=== PATIENT | male | born 1935 | race Caucasian/White ===

== ENCOUNTER 2016-04-30 07:08 | Inpatient (IN) | payer MEDICARE ==
[2016-04-18 13:58] LABS: WBC (NOT ORDERED) (RFLEX) 0 (0-5)
[2016-04-18 15:22] LABS: BASOPHILS 0.3 %; BASOPHILS ABSOLUTE 0.02 10/3/uL (0.0-0.16); EOSINOPHILS 1.9 %; EOSINOPHILS ABSOLUTE 0.13 10/3/uL (0.0-0.53); HEMATOCRIT 44.2 % (40.0-51.0); HEMOGLOBIN 15.1 g/dL (13.6-17.8); IMMATURE GRANULOCYTES 0.3 %; IMMATURE GRANULOCYTES ABSOLUTE 0.02 10/3/uL (0.0-0.11); LYMPHOCYTES 24.7 %; MEAN CORPUS HGB CONC 34.2 g/dL (32.0-36.0); MEAN CORPUSCULAR HEMOGLOB 31.7 pg (26.0-34.0); MEAN CORPUSCULAR VOLUME 92.7 fL (80-100); MEAN PLATELET VOLUME 9.4 fL (9.2-13.0); MONOCYTES 10.2 %; NEUTROPHILS 62.6 %; NEUTROPHILS ABSOLUTE 4.31 10/3/uL (2.02-8.40); PLATELET COUNT 228 10/3/uL (150-400); RBC DISTRIBUTION WIDTH 13.9 % (12.0-16.0); RED CELL COUNT 4.77 10/6/uL (4.7-6.1); WHITE BLOOD CELLS 6.9 10/3/uL (4.5-10.5)
[2016-04-18 15:25] LABS: MANUAL DIFF NO %
[2016-04-18 15:35] LABS: INTERNATIONAL NORMAL RATI 2.1 UNITS (-)
[2016-04-18 15:36] LABS: PROTIME (NOT ORD) 23.2 SEC (12.0-14.5)
[2016-04-18 15:42] LABS: CALCIUM, SERUM 8.6 MG/DL (8.5-10.4); CHLORIDE, SERUM 106 MMOL/L (96-112); CO2 (CARBON DIOXIDE) 25 MMOL/L (24-34); CREATININE 1.33 MG/DL (0.70-1.30); GFR AFRICAN AMERICAN 58 ML/MIN (>=60); GFR NON AFRICAN AMERICAN 50 ML/MIN (>=60); GLUCOSE, SERUM 90 MG/DL (60-99); POTASSIUM, SERUM 4.3 MMOL/L (3.5-5.3); SGOT(AST) 20 U/L (5-40); SGPT(ALT) 20 U/L (5-65); SODIUM, SERUM 140 MMOL/L (135-148); TOTAL PROTEIN 6.5 G/DL (6.0-8.5)
[2016-04-18 15:43] LABS: A/G RATIO 1.2 (0.7-1.9); ALBUMIN 3.5 G/DL (3.5-5.0); ALKALINE PHOSPHATASE 80 U/L (45-117); BUN (BLOOD UREA NITROGEN) 29 MG/DL (6-23); TOTAL BILIRUBIN 1.3 MG/DL (0-1.2)
[2016-04-18 16:18] LABS: ASCORBIC ACID (UR NOT ORDER) NEG (NEG); BILIRUBIN, URINE NEGATIVE (NEG); KETONE, URINE NEGATIVE (NEG); LEUKOCYTE ESTERASE(NOT OR NEG (NEG)
--- NOTE | ~2016-04-30 | DS ---
Discharge Summary [facility] [address] [place]. [address] NAME: YULI BOWEN : 34 STATUS : DIS IN PAT#: [id number] AGE: 81 ADM/REG DATE : 04/30/16 MR#: [id number] REPORT SERV DATE: 05/09/16 DICTATED BY: ALLEY MERRILL DATE: 05/09/16 REPORT STATUS : Draft TRANSCRIBED BY: RAVI DATE: 05/09/16 Data Collection from hospitalization DISCHARGE DIAGNOSES: 1. Severe left knee degenerative joint disease. 2. Hypertension. 3. Benign prostatic hypertrophy. 4. Hypothyroidism. 5. Peripheral arterial disease. 6. Peripheral neuropathy. 7. Former smoker. CONSULTATIONS: Aleksander Camacho M.D. PROCEDURES PERFORMED: Left posterior stabilized total knee replacement-cemented 04/30/2016. PATHOLOGY: Bone and soft tissue, left knee arthroplasty - degenerative joint disease with eburnation. No infection or neoplasm. MEDICATIONS: Aspirin 81 mg daily, Lipitor 20 mg at bedtime, vitamin D 2000 units every morning, ferrous sulfate 300 mg with breakfast and supper, Proscar 5 mg every morning, Synthroid 50 mcg daily, Theragran tablets one tablet with breakfast, fish oil 1000 mg at bedtime, Flomax 0.4 mg every morning, Jantoven 3 mg every evening-hold until INR level check on Thursday following discharge, tramadol 50 mg every six hours as needed for pain, Zofran 4 mg every six hours as needed for nausea. CONDITION AT DISCHARGE: Stable. DISPOSITION: The patient was discharged home with diet and activities as instructed. He would follow up with his primary care physician, Dr. Jagdeep Joe 1 week following discharge. HOSPITAL COURSE: This is an 81-year-old male with who has severe left knee degenerative joint disease. Treatment options were discussed and it was elected to proceed with surgical intervention. He was admitted to the hospital at this time for further evaluation and treatment. Upon admission, he was taken to the operating room where he underwent the above-mentioned procedure. He tolerated this well and there were no complications. On postop day #1, he was seen by Dr. Aleksander Camacho regarding wide-complex tachycardia. Early that morning, the patient had an 8-beat run of wide-complex tachycardia, which led to this consult. The patient has no history of ventricular arrhythmias in the past. He does have a history of coronary artery stent which was a bare-metal stent placed in the LAD in 2011. He had an abnormal stress test prior. Preoperatively before this knee surgery, he underwent a myocardial perfusion imaging study on 04/17/2016, which showed no ischemia and an ejection fraction greater than 60%. He had been asymptomatic. He did not feel the palpitations he had no recent anginal pain or shortness of breath. He has a history of chronic atrial fibrillation for which he had been on warfarin and he said that he had been on a stable dose of 3 mg for quite some time. INR level was 3.1, creatinine level was 1.47. The wide- Discharge Summary [facility] [address] [facility] [place]. [address] NAME: YULI BOWEN : 34 STATUS : DIS IN PAT#: [id number] AGE: 81 ADM/REG DATE : 04/30/16 MR#: [id number] REPORT SERV DATE: 05/09/16 DICTATED BY: ALLEY MERRILL DATE: 05/09/16 REPORT STATUS : Draft TRANSCRIBED BY: RAVI DATE: 05/09/16 complex tachycardia had a pattern suspicious for Charlotte phenomenon as there was a longer QR interval followed by an early beat. It was felt that this was most likely a variant conduction related to that it could be a short run of nonsustained ventricular tachycardia but he was asymptomatic. He does have a history of chronic atrial fibrillation with controlled ventricular response. He had an acute kidney injury related to drop of blood pressure and JUHI inhibitor and it appeared that he received some Celebrex the day previously and he also has acute blood loss anemia. It was felt that the drop in his blood pressure earlier in the day. It was probably due to loss of blood. 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 He recommended that we thought Phenergan, Marinol, Benadryl to reduce the risk of altered mental status. His warfarin dose was going to be reduced and we would follow up his INR level as well his hemoglobin. We would also follow up his creatinine. We would get an echocardiogram to make sure his ejection fraction was normal and we would check a troponin. He was likely been in immobilizer. Bedside echocardiogram was performed. He was evaluated by Physical Therapy. On postop day #2, he was doing well. He had passed physical therapy. He was wanting to go home. Discharged planning was performed. Coumadin was going to be held over the weekend. On 05/02/2016, he had some mild nausea with walking. He did not have much knee pain. He was voiding urine well. Discharge instructions were given. Orthostatic blood pressures were checked. Due to his improved and stable condition, he was discharged home with the above-stated instructions. Information collected by: Suzanne Wilder I submit the above information as my discharge summary. SMOOTH/RAVI Rajni Merrill M.D. / [id number]
--- NOTE | ~2016-04-30 | CN ---
Consultation Report [facility] [address] [place]. [address] NAME: YULI BOWEN : 34 STATUS : ADM IN PAT#: [id number] AGE: 81 ADM/REG DATE : 04/30/16 MR#: [id number] REPORT SERV DATE: 05/01/16 DICTATED BY: RONALDO CAMACHO DATE: 05/01/16 REPORT STATUS : Draft TRANSCRIBED BY: MODL DATE: 05/01/16 MEDICAL DATE OF CONSULTATION: 05/01/2016 IDENTIFYING DATA: An 81-year-old white male, whose PCP is Dr. Jagdeep Joe, canal boat operator is Dr. Rashel Maxwell, Vascular Surgery doctor is Dr. Ren Rodriguez, Orthopedic surgeon is Dr. Jun Short, and requesting physician is Dr. Jun Short. REASON FOR CONSULTATION: Wide-complex tachycardia. HISTORY OF PRESENT ILLNESS: This history of present illness is obtained by talking directly with the patient as well as reviewing [facility] and the [facility] records that are on the chart and talking with three family members that are available in the room. The patient was admitted here to the hospital electively and underwent a left knee surgery on 04/30/2016. Early in the morning of 05/01/2016, the patient had an 8-beat run of wide- complex tachycardia, which is what led to us being consulted. The patient has no history of ventricular arrhythmias in the past. He does have a history of a coronary artery stent, which was a bare metal stent placed in his LAD in 2011. He had an abnormal stress test prior to that. Preoperatively, before this knee surgery, he underwent a myocardial perfusion scan on 04/17/2016 showing no ischemia and ejection fraction greater than 60%. The patient has been asymptomatic. He did not feel the palpitations. He has had no recent anginal pain or shortness of breath. He has a history of chronic atrial fibrillation for which he has been on warfarin, and he states he has been on a stable dose of 3 mg for quite some time. REVIEW OF SYSTEMS: On review of systems, he denies chest pain, palpitations , shortness of breath, fever, cough, abdominal pain, vomiting, diarrhea, rectal bleeding, melena, urinary hesitancy, dysuria, peripheral edema, rash, tick bites, or falls. He states he had a little bit of nausea postop yesterday. ALLERGIES: NO KNOWN DRUG ALLERGIES. PAST MEDICAL HISTORY: He denies any history of diabetes, asthma, COPD, stroke, seizure, peptic ulcer, liver disease, cancer, or sleep apnea. Further past medical history indicates the patient had benign prostatic hypertrophy, hypothyroidism, hypertension, and previous kidney stones. He also had common bile duct stones removed with ERCP by Dr. Dennis in 2011 and then had a cholecystectomy. He has had a chart history of peripheral arterial disease. 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 The patient and family deny any knowledge of that. Consultation Report [place] [id number] [facility] [place]. [address] NAME: YULI BOWEN : 34 STATUS : ADM IN PAT#: [id number] AGE: 81 ADM/REG DATE : 04/30/16 MR#: [id number] REPORT SERV DATE: 05/01/16 DICTATED BY: RONALDO CAMACHO DATE: 05/01/16 REPORT STATUS : Draft TRANSCRIBED BY: RAVI DATE: 05/01/16 HOME MEDICATIONS: Include aspirin 81 mg daily, Lipitor 20 mg at bedtime, vitamin D 2000 units daily, Proscar 5 mg daily, Lasix 20 mg daily, Synthroid 50 mcg daily, lisinopril 5 mg daily, fish oil 1000 mg at bedtime, KCl 20 mEq every evening, Flomax 0.4 mg that he reportedly takes in the mornings, and Jantoven 3 mg at bedtime. PAST SURGICAL HISTORY: He had a left total knee yesterday. He has had renal artery stent on the right. He has had a cholecystectomy and ERCP. SOCIAL HISTORY: He quit smoking in the 1970s. He drinks some. He is he walks with a cane. He is a retired electrician manager. FAMILY HISTORY: Mother of old age. Father had black lung disease from coal mining. Siblings with lung cancer. DIAGNOSTIC DATA: Myocardial perfusion scan, 04/17/2016, showing no ischemia and ejection fraction greater than 60%. The last echocardiogram I could find was 03/25/2011 with ejection fraction 53%. EKG last one I could find on the [facility] was on 01/05/2013 showing atrial fibrillation with controlled ventricular response, Q-waves in III and aVF. There is an EKG from [facility] dated 08/19/2014 showing inferior Q-waves, atrial fibrillation with controlled ventricular response. Chest x-ray done as PA and lateral, preoperatively on 04/18/2016 reveals some scarring at the left lung base, some old granuloma, and mild flattening of the right hemidiaphragm as per my interpretation. LABORATORY DATA: Sodium 138, potassium 4.9, chloride 106, CO2 is 24, BUN 26, creatinine 1.47, glucose 149 (the patient did receive some Decadron from Orthopedics postop). Magnesium is 2.1. Phosphorus is 2.4. Albumin 2.5, total protein 5.1, total bilirubin is 0.7, previously it was noted to be elevated on 04/18/2016 at 1.3. His white count is 6.9 and hemoglobin is 11.7, and preoperative hemoglobin was 15.1 on 04/21/2014 and today's platelets are 228,000. His pro time today is 31.5 and INR 3.1. Urinalysis on 04/18/2016 showed 3 hyaline casts, otherwise normal. PHYSICAL EXAMINATION: VITAL SIGNS: Temperature is 98, pulse 75, respirations 18, blood pressure 130/80, but earlier today was 98/59 that was at 0410 hours. His O2 saturation is 94% on 2 L. BMI is 21.4. GENERAL: A well-developed male, who at the moment appears in no acute distress. HEENT: Head is atraumatic. Pupils are equal, round, and reactive to light. Extraocular motions are intact. No scleral icterus noted. Ears with hearing aids bilaterally with well compensated hearing. No inflammatory changes noted in the external ears. Nose, noninflamed externally. Septum midline. Nares patent. Mouth, moist, good gag, no redness of the throat, gums, or lips. NECK: Supple. No lymph node or thyroid enlargement. The carotids have good pulses. No bruits. LUNGS: Clear. Good air flow. No wheezes, no rhonchi. Normal respiratory effort. HEART: Irregularly irregular without murmur, gallop, click, or rub. ABDOMEN: Bowel sounds positive. Soft, nondistended, nontender. No masses. No Consultation Report [facility] [address] [place]. [address] NAME: YULI BOWEN : 34 STATUS : ADM IN PAT#: [id number] AGE: 81 ADM/REG DATE : 04/30/16 MR#: [id number] REPORT SERV DATE: 05/01/16 DICTATED BY: RONALDO CAMACHO DATE: 05/01/16 REPORT STATUS : Draft TRANSCRIBED BY: MODL DATE: 05/01/16 organomegaly. No bruits. EXTREMITIES: Warm. Good pulses. No clubbing, no cyanosis, no edema. He has a Hemovac in place from his left knee surgery and has a large amount of blood in it. NEUROLOGIC: He is alert, oriented, and cooperative with grossly normal mentation and speech and cranial nerves 2 through 12. No Babinski. No clonus noted. ASSESSMENT: 1. An 8-beat wide-complex tachycardia that has a pattern suspicious for Charlotte phenomenon as there was a longer R to R interval followed by an early beat, so I think this is most likely aberrant conduction related to that. It could be a short run of nonsustained ventricular tachycardia, but it was asymptomatic. 2. Chronic atrial fibrillation with controlled ventricular response. 3. Acute kidney injury related to drop of blood pressure and JUHI inhibitor and it looks like he got some Celebrex yesterday and also he has acute blood loss anemia. 4. Drop in blood pressure today is probably due to the loss of blood. 5. Acute blood loss anemia with his knee replacement surgery and some ongoing postop bleeding. 6. Mild elevation of bilirubin, most consistent with Gilbert's. 7. See past medical history. PLAN: 1. Stop Toradol and not use any anti-inflammatories. 2. Stop Lasix and lisinopril because of his lower blood pressure and acute kidney injury. 3. I would recommend stopping Phenergan, Marinol, and Benadryl to reduce the risk of altered mental status in a gentleman of age 81. 4. We are going to reduce his warfarin dose and follow up his INR as well as his hemoglobins. We will follow up his creatinine. We will get an echocardiogram to make sure his ejection fraction is normal. We will check a troponin. Activity level per Orthopedics. and two other family members updated at the bedside at this time. RSAileen/MODL Ronaldo Camacho M.D. / [id number] CC: Rosemary Swann M.D. C. Samuel Ledford, M.D.
--- NOTE | ~2016-04-30 | OP ---
Record Of Operation [facility] [address] [place]. [address] NAME: YULI BOWEN : 34 STATUS : ADM IN PAT#: [id number] AGE: 81 ADM/REG DATE : 04/30/16 MR#: [id number] REPORT SERV DATE: 05/01/16 DICTATED BY: ALLEY MERRILL DATE: 04/30/16 REPORT STATUS : Draft TRANSCRIBED BY: MODL DATE: 04/30/16 DATE OF PROCEDURE: 04/30/2016 PREOPERATIVE DIAGNOSIS: Severe left knee degenerative joint disease. POSTOPERATIVE DIAGNOSIS: Severe left knee degenerative joint disease. OPERATION: Left posterior stabilized total knee replacement, cemented. SIDE: Left. SIZE: See chart. ANESTHESIA: See chart. ESTIMATED BLOOD LOSS: About 10 mL. TOURNIQUET TIME: Approximately 1 hour and 10 minutes. COMPLICATIONS: None. SPECIMENS: Articular surfaces. PROCEDURE: The patient was appropriately identified and marked. The operative side agreed with the consent form and it was checked by all members of the surgical team. The patient was taken to the operating room and anesthesia was induced per the anesthesiologist. The patient was carefully transferred to the operating table without incident. The patient received appropriate prophylactic antibiotics and a Draper catheter was placed in the standard sterile technique. The patient was then carefully positioned, padded, prepped and draped in the normal sterile fashion. The operative leg had been appropriately identified and checked by all members of the operating team against the consent form and found to be the correct limb. The patient's lower extremity was then exsanguinated with an Huber wrap and a tourniquet was inflated to 350 mm/Hg. Sharp dissection was carried out through a straight midline longitudinal incision and electrocautery through the fat. Sharp quad splitting approach was carried out between about the medial 10 percent of the tendon and the lateral 90 percent of the tendon and down around the medial aspect of the patella and then 1 cm medial to the tibial tubercle. The patella was carefully everted and the posterior fat pad was excised and gentle MCL elevation was carried out off the proximal medial tibia subperiosteally. IM guide was placed in the distal femur after using the appropriate drill. The distal femoral cutting guide was held with 2 pins and the distal cut made. Meniscal fragments and the ACL and the PCL were excised with electrocautery, carefully staying anterior to the posterior fat pad. The proximal tibial alignment guide was set appropriately and the proximal tibial cut made. Spacer block verified full extension with excellent mediolateral balance. Sizing guide was used to place 2 drill holes in the distal femur and the four-in-one cutting block was then placed, impacted and checked Record Of Operation [facility] [address] [place]. [address] NAME: YULI BOWEN : 34 STATUS : ADM IN PAT#: [id number] AGE: 81 ADM/REG DATE : 04/30/16 MR#: [id number] REPORT SERV DATE: 05/01/16 DICTATED BY: ALLEY MERRILL DATE: 04/30/16 REPORT STATUS : Draft TRANSCRIBED BY: MODL DATE: 04/30/16 to be sure it would not notch with an milka wing and it was held with 2 pins. The anterior cut, posterior cut, anterior chamfer and posterior chamfer cuts were made. The pins were removed and the block was removed. A posterior release was carried out with a curved 3/4 inch osteotome staying right on the bone posteriorly. The box-cut guide was then placed, impacted and held with 2 pins and a reciprocating saw was used to cut out the box. With the trial components in place, there was excellent medial/lateral balance. The patella was then measured with a caliper, cut first with an oscillating saw and then reamed with a patella reamer. With the trial patella in place, there was excellent patellar tracking. Rotation was marked on the tibia and the tibia prepared with a drill and stamp chisel. All surfaces were then copiously irrigated with pulsatile lavage, carefully dried and then vacuum-mixed cement was pressurized with a cement gun in a doughy phase. The tibial component was placed, impacted and excess cement was removed. The cement was then pressurized in the femur and placed on the posterior runners of the femoral component, which was placed, impacted and excess cement removed and the knee was brought out into extension on a trial spacer. The cement was then pressurized in the patella. Patellar component was then placed, clamped and excess cement was removed. Once all cement was hardened, the knee was taken through range of motion. Further extruded cement was removed with a small osteotome. Then based on the trial inserts, we decided on the actual insert, which was placed in the standard fashion and held with a locking mechanism. The knee was then copiously irrigated and then closed in a layered fashion over a medium Hemovac drain superolaterally with interrupted #1 in the deep fascia, 2-0 subcutaneous and ne in the skin. The wounds were dressed sterilely and the tourniquet was deflated. The patient was then awakened and taken to the postanesthesia care unit without incident. All counts were correct at the end of the case. CANELO/RAVI Rajni Merrill M.D. / [id number] CC: Rosemary Swann M.D.
[~2016-04-30 07:08] MED LIST: ALEVE220 MG PO; ASAB PO; ASABAYER PO; CARDCD180 PO; FISH-EPA1000 MG PO; FLOMAX4 PO; JANTOVEN5 MG PO; KLOR-CON M2020 MEQ PO; L20 PO; LIPITOR20 PO; PRIN10 PO; PRIN5 PO; PROSCAR5 PO; SYN.025B PO; SYN.05 PO; VIAGRA25 PO; VITAMIN D1000 UNI1 PO; ZANTAC150 MG PO
[2016-04-30 07:38] LABS: INTERNATIONAL NORMAL RATI 1.9 UNITS (-)
[2016-05-01 06:19] LABS: HEMATOCRIT 33.7 % (40.0-51.0); HEMOGLOBIN 11.7 g/dL (13.6-17.8)
[2016-05-01 06:20] LABS: INTERNATIONAL NORMAL RATI 3.1 UNITS (-)
[2016-05-01 06:23] LABS: PROTIME (NOT ORD) 31.5 SEC (12.0-14.5)
[2016-05-01 06:30] LABS: ALBUMIN 2.5 G/DL (3.5-5.0); ALKALINE PHOSPHATASE 61 U/L (45-117); BUN (BLOOD UREA NITROGEN) 26 MG/DL (6-23); CALCIUM, SERUM 7.7 MG/DL (8.5-10.4); CHLORIDE, SERUM 106 MMOL/L (96-112); CO2 (CARBON DIOXIDE) 24 MMOL/L (24-34); CREATININE 1.47 MG/DL (0.70-1.30); GFR AFRICAN AMERICAN 51 ML/MIN (>=60); GFR NON AFRICAN AMERICAN 44 ML/MIN (>=60); GLOBULIN 2.6 G/DL (2.5-4.1); GLUCOSE, SERUM 149 MG/DL (60-99); PHOSPHORUS, SERUM 2.4 MG/DL (2.5-4.5); POTASSIUM, SERUM 4.9 MMOL/L (3.5-5.3); SGOT(AST) 12 U/L (5-40); SGPT(ALT) 15 U/L (5-65); SODIUM, SERUM 138 MMOL/L (135-148); TOTAL BILIRUBIN 0.7 MG/DL (0-1.2); TOTAL PROTEIN 5.1 G/DL (6.0-8.5)
[2016-05-01 11:57] LABS: TROPONIN I <0.02 NG/ML (<0.05)
[2016-05-01 17:27] LABS: INTERNATIONAL NORMAL RATI 3.7 UNITS (-)
[2016-05-01 17:29] LABS: PROTIME (NOT ORD) 36.4 SEC (12.0-14.5)
[2016-05-02 06:02] LABS: BASOPHILS 0.1 %; BASOPHILS ABSOLUTE 0.01 10/3/uL (0.0-0.16); EOSINOPHILS 0.1 %; EOSINOPHILS ABSOLUTE 0.01 10/3/uL (0.0-0.53); HEMATOCRIT 30.8 % (40.0-51.0); HEMOGLOBIN 10.5 g/dL (13.6-17.8); IMMATURE GRANULOCYTES 0.4 %; IMMATURE GRANULOCYTES ABSOLUTE 0.04 10/3/uL (0.0-0.11); LYMPHOCYTES 16.1 %; LYMPHOCYTES ABSOLUTE 1.64 10/3/uL (0.67-4.30); MEAN CORPUS HGB CONC 34.1 g/dL (32.0-36.0); MEAN CORPUSCULAR VOLUME 93.9 fL (80-100); MEAN PLATELET VOLUME 9.2 fL (9.2-13.0); MONOCYTES 13.3 %; MONOCYTES ABSOLUTE 1.36 10/3/uL (0.21-1.20); NEUTROPHILS ABSOLUTE 7.13 10/3/uL (2.02-8.40); PLATELET COUNT 188 10/3/uL (150-400); RBC DISTRIBUTION WIDTH 13.8 % (12.0-16.0)
[2016-05-02 06:12] LABS: INTERNATIONAL NORMAL RATI 4.3 UNITS (-); MANUAL DIFF NO %; RED CELL COUNT 3.28 10/6/uL (4.7-6.1); WHITE BLOOD CELLS 10.2 10/3/uL (4.5-10.5)
[2016-05-02 06:16] LABS: BUN (BLOOD UREA NITROGEN) 29 MG/DL (6-23); CALCIUM, SERUM 7.9 MG/DL (8.5-10.4); CHLORIDE, SERUM 103 MMOL/L (96-112); CO2 (CARBON DIOXIDE) 25 MMOL/L (24-34); CREATININE 1.62 MG/DL (0.70-1.30); GFR AFRICAN AMERICAN 45 ML/MIN (>=60); GFR NON AFRICAN AMERICAN 39 ML/MIN (>=60); GLUCOSE, SERUM 109 MG/DL (60-99); SODIUM, SERUM 138 MMOL/L (135-148)
[2016-05-03 07:08] LABS: BASOPHILS 0.3 %; BASOPHILS ABSOLUTE 0.02 10/3/uL (0.0-0.16); EOSINOPHILS 0.6 %; EOSINOPHILS ABSOLUTE 0.05 10/3/uL (0.0-0.53); HEMATOCRIT 29.8 % (40.0-51.0); HEMOGLOBIN 10.2 g/dL (13.6-17.8); IMMATURE GRANULOCYTES ABSOLUTE 0.08 10/3/uL (0.0-0.11); LYMPHOCYTES 19.4 %; MEAN CORPUS HGB CONC 34.2 g/dL (32.0-36.0); MEAN CORPUSCULAR HEMOGLOB 32.5 pg (26.0-34.0); MEAN CORPUSCULAR VOLUME 94.9 fL (80-100); MEAN PLATELET VOLUME 9.2 fL (9.2-13.0); MONOCYTES ABSOLUTE 1.24 10/3/uL (0.21-1.20); NEUTROPHILS 62.7 %; NEUTROPHILS ABSOLUTE 4.85 10/3/uL (2.02-8.40); PLATELET COUNT 191 10/3/uL (150-400); RBC DISTRIBUTION WIDTH 13.7 % (12.0-16.0); RED CELL COUNT 3.14 10/6/uL (4.7-6.1); WHITE BLOOD CELLS 7.7 10/3/uL (4.5-10.5)
[2016-05-03 07:12] LABS: MANUAL DIFF NO %
[2016-05-03 07:15] LABS: INTERNATIONAL NORMAL RATI 2.4 UNITS (-); PROTIME (NOT ORD) 26.3 SEC (12.0-14.5)
[2016-05-03 07:19] LABS: BUN (BLOOD UREA NITROGEN) 27 MG/DL (6-23); CHLORIDE, SERUM 103 MMOL/L (96-112); CO2 (CARBON DIOXIDE) 26 MMOL/L (24-34); GFR AFRICAN AMERICAN 50 ML/MIN (>=60); GFR NON AFRICAN AMERICAN 43 ML/MIN (>=60); GLUCOSE, SERUM 89 MG/DL (60-99); POTASSIUM, SERUM 4.8 MMOL/L (3.5-5.3); SODIUM, SERUM 136 MMOL/L (135-148)
[2016-05-03] MEDS ORDERED: MULTIPLE VIT PO (13:49)
[2016-05-03] MEDS ORDERED: FESO4 PO (13:52)
[2016-05-03] MEDS ORDERED: ULTRAM50 PO (13:53)
[2016-05-03] MEDS ORDERED: ZOFRAN4 PO ×2 (13:54→13:56)
[2016-10-22] MEDS ORDERED: JANTOVEN2.5 MG PO (17:06)
[2016-10-22] MEDS ORDERED: KLOR-CON20 MEQ PO (17:15)
[2016-10-22] MEDS ORDERED: PRIN5 PO (17:17)
[2016-10-29] MEDS ORDERED: PCET PO (12:25)
[2016-10-29] MEDS ORDERED: C5 PO (12:26)
== END 2016-05-03 17:03 | disposition home or self-care (01) | DRG 470 ==
LOC: SDC/OF 07:08 → PACU 11:45 → 1SO 13:53
PROVIDERS: Anesthesiology; Hospitalist; Nurse Practitioner; Specialist
PROC: 0SRD0J9 Replacement of Left Knee Joint with Synthetic Substitute, Cemented, Open Approach (ICD-10-PCS; principal; 2016-04-30 09:15)
DX: M17.12 Unilateral primary osteoarthritis, left knee (principal); N17.9 Acute kidney failure, unspecified; I95.9 Hypotension, unspecified; D68.9 Coagulation defect, unspecified; D62 Acute posthemorrhagic anemia; G62.9 Polyneuropathy, unspecified; I48.2 Chronic atrial fibrillation; I73.9 Peripheral vascular disease, unspecified; I12.9 Hypertensive chronic kidney disease with stage 1 through stage 4 chronic kidney disease, or unspecified chronic kidney disease; N18.9 Chronic kidney disease, unspecified; E78.5 Hyperlipidemia, unspecified; I25.10 Atherosclerotic heart disease of native coronary artery without angina pectoris; N40.0 Benign prostatic hyperplasia without lower urinary tract symptoms; Z79.899 Other long term (current) drug therapy; E03.9 Hypothyroidism, unspecified; Z98.61 Coronary angioplasty status; Z79.01 Long term (current) use of anticoagulants; Z87.891 Personal history of nicotine dependence; Z87.442 Personal history of urinary calculi; Z79.82 Long term (current) use of aspirin
CPT/HCPCS: 71020; 80048; 80053; 81001; 83735; 84100; 84484; 85014; 85018; 85025; 85610; 87641; 88305; 88311; 93306; 97110-GP; 97116-GP; 97161-GP; 97165-GO; A9270-GY; C1776; G8978-CJ-GP; G8979-CJ-GP; G8980-CJ-GP; J0690; J1885; J2250; J2274; J2405; J2795; J3010